=== PATIENT | male | born 1935 | race Caucasian/White ===

== ENCOUNTER → 2016-03-15 | Outpatient (CLI) | payer MEDICARE ==
[~2016-03-15] MED LIST: AMLO10TA82 PO; ANTI1CAP PO; ASPI-586 PO; CA C1TAB26 PO; LISI1TAB8 PO; LORA-404 PO; LSNP20T PO; METO25TA60 PO; MULT-851 PO; SAW450CA4 PO
[2016-03-15 10:24] LABS: MEAN CORPUSCULAR HEMOGLOBIN 30.3 PG (26.0-34.0); MEAN CORPUSCULAR HGB CONC 35.5 g/dL (31.0-37.0); MEAN CORPUSCULAR VOLUME 85 FL (80-100); MEAN PLATELET VOLUME 12.7 FL (6.0-9.5); PLATELET COUNT 59 10^3uL (150-450); WHITE BLOOD COUNT 7.56 10^3uL (4.0-11.0)
[2016-03-15 10:43] LABS: BAND NEUTROPHILS % 0 % (0-6); EOSINOPHILS % 0 % (0-4); LYMPHOCYTES # 3.4 #; MONOCYTES # 1.8 #; MONOCYTES % 25 % (3-11); SEGMENTED NEUTROPHILS % 30 % (51-67); TOTAL CELLS COUNTED 100
[2016-03-15 10:44] LABS: RBC MORPH NORMAL (NORMAL)
[2016-03-15 10:53] LABS: ALBUMIN 4.5 g/dL (3.4-5.0); ANION GAP 17.1 MEQ/L (3-15); CALCULATED IONIZED CALCIUM 3.8 mg/dL (3.8-4.6); TOTAL PROTEIN 8.1 g/dL (6.4-8.5)
== END ==
LOC: LAB 08:41
PROVIDERS: ATTEND Internal Medicine Hematology & Oncology
DX: D69.6 Thrombocytopenia, unspecified (principal); I25.10 Atherosclerotic heart disease of native coronary artery without angina pectoris; I10 Essential (primary) hypertension; R53.83 Other fatigue
CPT/HCPCS: 36415; 80053; 84443; 85025

== ENCOUNTER 2016-03-22 11:23 | Emergency (ER) | payer MEDICARE ==
[~2016-03-22] VITALS: Ht 172.7 cm; Wt 86.3 kg
[2016-03-22 12:01] LABS: MEAN CORPUSCULAR HEMOGLOBIN 29.6 PG (26.0-34.0); MEAN CORPUSCULAR HGB CONC 34.9 g/dL (31.0-37.0); MEAN CORPUSCULAR VOLUME 85 FL (80-100); MEAN PLATELET VOLUME 13.3 FL (6.0-9.5); WHITE BLOOD COUNT 10.61 10^3uL (4.0-11.0)
[2016-03-22 12:08] LABS: PLATELET COUNT 69 10^3uL (150-450)
[2016-03-22 12:12] LABS: BAND NEUTROPHILS % 0 % (0-6); EOSINOPHILS % 0 % (0-4); LYMPHOCYTES # 2.4 #; MONOCYTES # 1.4 #; MONOCYTES % 14 % (3-11); SEGMENTED NEUTROPHILS % 57 % (51-67); TOTAL CELLS COUNTED 100
[2016-03-22 12:13] LABS: RBC MORPH NORMAL (NORMAL)
[2016-03-22 12:15] LABS: ALBUMIN 4.4 g/dL (3.4-5.0); CALCULATED IONIZED CALCIUM 3.8 mg/dL (3.8-4.6); TOTAL PROTEIN 8.2 g/dL (6.4-8.5)
--- NOTE | 2016-03-22 12:48 | NUR ---
urinal placed after using obstetrical wipe for ua. cl
--- NOTE | 2016-03-22 14:16 | NUR ---
PT REQUESTS A DRINK OF WATER. CL
--- NOTE | 2016-03-22 14:21 | NUR ---
ICE WATER GIVEN TO PT PER DR SINGH'S OK. CL
--- NOTE | 2016-03-22 14:52 | NUR ---
DR SINGH TALKS W/DR JACKSON RE PT. CL
--- NOTE | 2016-03-22 15:20 | NUR ---
CALLING RT TO SET UP A [employer] MONITOR FOR OUTPT. PT MUST BE DISMISSED & RE-ENTERED AN OUTPT BEFORE SHE CAN PUT IT ON. CL
[2016-03-22 15:42] VITALS: BP 147/94
[2016-03-22] MEDS ORDERED: BACITRACIN OINTMENT 0.9 GM PACKET TOP ONE ×2 (16:01→19:20)
[2016-03-22 17:28] LABS: BILIRUBIN,URINE Negative (Negative); CLARITY,URINE Clear; COLOR,URINE Yellow; GLUCOSE, URINE (UA) Negative (Negative); LEUKOCYTE ESTERASE ,URINE Negative (Negative)
[2016-03-22 17:48] LABS: URINE CENTRIFUGED VOLUME 12 mL
== END 2016-03-22 15:43 | disposition home or self-care (01) ==
LOC: EDUNIT# 11:23 → ED 11:25
DX: R55 Syncope and collapse (principal); S01.21XA Laceration without foreign body of nose, initial encounter; W18.39XA Other fall on same level, initial encounter; Y93.01 Activity, walking, marching and hiking; Y92.481 Parking lot as the place of occurrence of the external cause
CPT/HCPCS: 36415; 71010; 80053; 81003; 81015; 85025; 86140; 93005; 99285; A9270; 12011; 73110; 93010; 93226; 99284

== ENCOUNTER → 2016-03-22 | Outpatient (CLI) | payer MEDICARE | LOC: RAD 10:41 | PROVIDERS: ATTEND Internal Medicine | DX: M25.531 Pain in right wrist (principal); R93.6 Abnormal findings on diagnostic imaging of limbs; R55 Syncope and collapse | CPT/HCPCS: 73110; 93226 ==

== ENCOUNTER → 2016-06-12 | Outpatient (CLI) | payer MEDICARE ==
[2016-06-12 08:31] LABS: MEAN CORPUSCULAR HEMOGLOBIN 29.2 PG (26.0-34.0); MEAN CORPUSCULAR VOLUME 86 FL (80-100); PLATELET COUNT 67 10^3uL (150-450); WHITE BLOOD COUNT 7.92 10^3uL (4.0-11.0)
[2016-06-12 08:53] LABS: BAND NEUTROPHILS % 0 % (0-6); EOSINOPHILS % 0 % (0-4); LYMPHOCYTES # 2.9 #; MONOCYTES # 1.2 #; MONOCYTES % 17 % (3-11); RBC MORPH NORMAL (NORMAL); SEGMENTED NEUTROPHILS % 46 % (51-67); TOTAL CELLS COUNTED 100
== END ==
LOC: LAB 08:11
PROVIDERS: ATTEND Internal Medicine Hematology & Oncology
DX: D69.6 Thrombocytopenia, unspecified (principal)
CPT/HCPCS: 36415; 85025